=== PATIENT | female | born 1995 | race African-American/Black ===

== ENCOUNTER 2017-05-03 22:01 | Emergency (ER) | payer SELFPAY ==
[~2017-05-03] VITALS: Ht 160 cm; Wt 81.6 kg
[2017-05-03] MEDS ORDERED: KETOROLAC TROMETHAMINE 30 MG/ML INJ. IV ONE (23:00)
[2017-05-03] MEDS ORDERED: IV NORMAL SALINE 1000ML BAG 1,000 ML IV SCH (23:00)
[2017-05-03] MEDS ORDERED: fentaNYL PF VIAL 100 MCG/2 ML VIAL IV PRN (23:00)
[2017-05-03 23:06] LABS: BASO # 0.1 x10^3/uL (0.0-0.2); BASO % 1 % (0-3); EOS % 1 % (0-3); HEMATOCRIT 37.2 % (36.0-47.0); HEMOGLOBIN 12.3 g/dL (12.0-15.5); LYMPH # 2.6 x10^3/uL (1.0-4.8); LYMPH % 27 % (24-48); MEAN CORPUSCULAR HEMOGLOBIN 27 pg (25-35); MEAN CORPUSCULAR HGB CONC 33 g/dL (31-37); MEAN CORPUSCULAR VOLUME 83 fL (79-100); MONO % 10 % (0-9); NEUT % 62 % (31-73); PLATELET COUNT 441 x10^3/uL (140-400); RED BLOOD COUNT 4.51 x10^6/uL (3.50-5.40); RED CELL DISTRIBUTION WIDTH 16.2 % (11.5-14.5); WHITE BLOOD COUNT 9.5 x10^3/uL (4.0-11.0)
[2017-05-03 23:08] LABS: BILIRUBIN,URINE NEGATIVE (NEG); GLUCOSE,URINE NEGATIVE (NEG); NITRITE,URINE NEGATIVE (NEG); PROTEIN,URINE NEGATIVE (NEG-TRACE); UROBILINOGEN,URINE 0.2 mg/dL (0.2 mg/dL)
[2017-05-03 23:15] LABS: CALCIUM 9.5 mg/dL (8.5-10.1); CREATININE 0.8 mg/dL (0.6-1.0); GFR 111.8; POTASSIUM 3.5 mmol/L (3.5-5.1)
--- NOTE | 2017-05-03 23:16 | ED.ADGEN ---
Past Medical History Past Medical History: Asthma, GERD Past Surgical History: Tonsillectomy, Other Additional Past Surgical Histo: adenoid Alcohol Use: None Drug Use: None Adult General Chief Complaint Chief Complaint: ABDOMINAL PAIN HPI HPI Patient is a 21 year old woman, with a history of intermittent rectal pain, after "an enema when I was a kid", who presents to the emergency department with complaint of lower abdominal and rectal pain that began about an hour ago. She states she's had similar rectal pain previously, ever since receiving enemas a child, but has not previously needed to seek medical care she states that today he was extremely severe. Patient is tearful during my examination. She states that she is having pain that began in the "inside", of her rectal area, and is experiencing pain in the lower quadrant, which is been constant for the past hour, associated with nausea no vomiting. She states that she did have a bowel movement before the pain began, states she was not constipated, bowel was normal past issue, there was no bleeding. She denies any injuries or insertions into the rectum. Patient states she is not sexually active, denies any discharge, drainage, urinary or complaints. Denies any recent travel or surgery, any rashes, any other symptoms or complaints. She states that she took Tylenol home without relief. Review of Systems Review of Systems Constitutional: Denies fever or chills. [] Eyes: Denies change in visual acuity. [] HENT: Denies nasal congestion or sore throat. [] Respiratory: Denies cough or shortness of breath. [] Cardiovascular: Denies chest pain or edema. [] GI: Denies vomiting, bloody stools or diarrhea. [] Complaining of lower quadrant abdominal pain, and rectal pain. : Denies dysuria. [] Musculoskeletal: Denies back pain or joint pain. [] Integument: Denies rash. [] Neurologic: Denies headache, focal weakness or sensory changes. [] Endocrine: Denies polyuria or polydipsia. [] Lymphatic: Denies swollen glands. [] Psychiatric: Denies depression or anxiety. [] Current Medications Current Medications Current Medications Medications (Trade) Dose Ordered Sig/Zohreh Start Time Stop Time Status Last Admin Dose Admin Fentanyl Citrate (Fentanyl 2ml Vial) 50 mcg PRN Q15MIN PRN 05/03/17 23:00 05/04/17 05:37 DC 05/03/17 23:13 50 MCG Ketorolac Tromethamine (Toradol) 10 mg 1X ONCE 05/03/17 23:00 05/03/17 23:01 DC 05/03/17 23:00 10 MG Sodium Chloride 1,000 ml @ 1,000 mls/hr Q1H 05/03/17 23:00 05/03/17 23:59 DC 05/03/17 23:00 1,000 MLS/HR Allergies Allergies Allergies Coded Allergies Type Severity Reaction Last Updated Verified Penicillins Allergy Intermediate Rash 05/03/17 Yes erythromycin base Allergy Intermediate Rash 05/03/17 Yes shellfish derived Allergy Intermediate SWELLING 12/28/13 Yes Physical Exam Physical Exam Constitutional: Well developed, well nourished, no acute distress, non-toxic appearance. [] HENT: Normocephalic, atraumatic, bilateral external ears normal, oropharynx moist, no oral exudates, nose normal. [] Eyes: PERRLA, EOMI, conjunctiva normal, no discharge. [] Neck: Normal range of motion, no tenderness, supple, no stridor. [] Cardiovascular:Heart rate regular rhythm, no murmur , S1, S2, no rubs or gallops. [] Lungs & Thorax: Bilateral breath sounds clear to auscultation, no wheezing, rhonchi, rales. Chest crepitus or tenderness. [] Abdomen: Bowel sounds normal, soft, tenderness to palpation in the bilateral lower quadrants and pelvic region, no rebound, rigidity, no guarding, no masses , no pulsatile masses. [] Skin: Warm, dry, no erythema, no rash. [] Back: No tenderness, no CVA tenderness. [] Extremities: No tenderness, no cyanosis, no clubbing, ROM intact, no edema. [] Neurologic: Alert and oriented X 3, normal motor function, normal sensory function, no focal deficits noted. [] Psychologic: Affect normal, judgement normal, mood normal. [] Rectal examination: Patient is external examination is unremarkable, however upon attempted insertion of my finger, patient is yelling in pain, with extreme tension, no masses palpated, after second attempt, no evidence of injury, no foreign bodies or other maladies identified. Current Patient Data Vital Signs Vital Signs Date Time Temp Pulse Resp B/P (MAP) Pulse Ox O2 Delivery O2 Flow Rate FiO2 05/03/17 23:30 84 132/59 (83) 99 Room Air 05/03/17 23:13 18 05/03/17 22:36 98.3 98.3 Lab Values Laboratory Tests Test 05/03/17 21:48 05/03/17 22:50 POC Urine HCG, Qualitative Hcg negative (Negative) White Blood Count 9.5 x10^3/uL (4.0-11.0) Red Blood Count 4.51 x10^6/uL (3.50-5.40) Hemoglobin 12.3 g/dL (12.0-15.5) Hematocrit 37.2 % (36.0-47.0) Mean Corpuscular Volume 83 fL (79-100) Mean Corpuscular Hemoglobin 27 pg (25-35) Mean Corpuscular Hemoglobin Concent 33 g/dL (31-37) Red Cell Distribution Width 16.2 % (11.5-14.5) H Platelet Count 441 x10^3/uL (140-400) H Neutrophils (%) (Auto) 62 % (31-73) Lymphocytes (%) (Auto) 27 % (24-48) Monocytes (%) (Auto) 10 % (0-9) H Eosinophils (%) (Auto) 1 % (0-3) Basophils (%) (Auto) 1 % (0-3) Neutrophils # (Auto) 5.9 x10^3uL (1.8-7.7) Lymphocytes # (Auto) 2.6 x10^3/uL (1.0-4.8) Monocytes # (Auto) 0.9 x10^3/uL (0.0-1.1) Eosinophils # (Auto) 0.1 x10^3/uL (0.0-0.7) Basophils # (Auto) 0.1 x10^3/uL (0.0-0.2) Urine Collection Type Unknown Urine Color Yellow Urine Clarity Clear Urine pH 6.0 Urine Specific Aurora >=1.030 Urine Protein Negative mg/dL (NEG-TRACE) Urine Glucose (UA) Negative mg/dL (NEG) Urine Ketones (Stick) Trace mg/dL (NEG) Urine Blood Negative (NEG) Urine Nitrite Negative (NEG) Urine Bilirubin Negative (NEG) Urine Urobilinogen Dipstick 0.2 mg/dL (0.2 mg/dL) Urine Leukocyte Esterase Small (NEG) Urine RBC 0 /HPF (0-2) Urine WBC 5-10 /HPF (0-4) Urine Squamous Epithelial Cells Mod /LPF Urine Bacteria Moderate /HPF (0-FEW) Urine Mucus Mod /LPF Sodium Level 138 mmol/L (136-145) Potassium Level 3.5 mmol/L (3.5-5.1) Chloride Level 101 mmol/L (98-107) Carbon Dioxide Level 28 mmol/L (21-32) Anion Gap 9 (6-14) Blood Urea Nitrogen 11 mg/dL (7-20) Creatinine 0.8 mg/dL (0.6-1.0) Estimated GFR (Cockcroft-Gault) 111.8 BUN/Creatinine Ratio 14 (6-20) Glucose Level 93 mg/dL (70-99) Calcium Level 9.5 mg/dL (8.5-10.1) Total Bilirubin 0.4 mg/dL (0.2-1.0) Aspartate Amino Transferase (AST) 14 U/L (15-37) L Alanine Aminotransferase (ALT) 15 U/L (14-59) Alkaline Phosphatase 61 U/L (46-116) Total Protein 8.7 g/dL (6.4-8.2) H Albumin 3.9 g/dL (3.4-5.0) Albumin/Globulin Ratio 0.8 (1.0-1.7) L Laboratory Tests 05/03/17 22:50 Laboratory Tests 05/03/17 22:50 EKG EKG Not indicated [] Radiology/Procedures Radiology/Procedures [][facility] [address] [place] [address] IMAGING REPORT Signed PATIENT: ANNABELLE HUNG ACCOUNT: [id number] : 1995 LOCATION: ER AGE: 21 SEX: F EXAM STATUS: REG ER ORD. PHYSICIAN: AMOL GRACIA DO REASON: abd/rectal pain PROCEDURE: CT ABDOMEN PELVIS WO CONTRAST Abdominal and Pelvis CT, Without Contrast: History: Right flank pain. Comparison: December 28, 2013. Procedure: Axial images are obtained of the abdomen and pelvis, without IV or oral contrast. CT Abdomen without Contrast: Findings: Evaluation of solid organs is limited without contrast. Evaluation of stomach and bowel is limited without oral contrast. Liver: Normal. Spleen: Normal. Pancreas: Normal. Adrenal Glands: Normal. Kidneys: Normal. There is no free air or free fluid. There is no lymphadenopathy. Impression: Please see CT Pelvis without Contrast. End Impression. CT Pelvis without Contrast: Findings: The urinary bladder appears normal. There is no free fluid. There is no lymphadenopathy. There is no pericolonic inflammation identified. There is a small tubular structure medial to the cecum which could be a normal appendix. Impression: No evidence of urolithiasis or obstructive uropathy. No acute findings. End impression PQRS Compliance Statement: One or more of the following individualized dose reduction techniques were utilized for this examination: 1. Automated exposure control 2. Adjustment of the mA and/or kV according to patient size 3. Use of iterative reconstruction technique Electronically signed by: Dao Gonzalez III, MD (05/03/2017 11:44 PM) [facility] DICTATED and SIGNED BY: DAO GONZALEZ III, MD DATE: 05/03/17 2704 CC: AMOL GRACIA DO; NO PCP ~ Course & Med Decision Making Course & Med Decision Making Pertinent Labs and Imaging studies reviewed. (See chart for details) After discussion at bedside, will obtain CT of the abdomen and pelvis, laboratory studies or further elucidate patient's symptoms. Patient's laboratory studies not reveal any acutely concerning findings, CT was unremarkable. On reevaluation patient is feeling better. I discussed with the patient that no concerning cause for her discomfort were identified, we discussed follow-up with a primary care provider, and concerning symptoms that prompt return to the ED. Patient is feeling much better at this time. She states she is ready discharged home. Patient discharged home in stable condition with prescription for Bentyl, clear and detailed return instructions and precautions as stated above. Dragon Disclaimer Dragon Disclaimer This electronic medical record was generated, in whole or in part, using a voice recognition dictation system. Departure Impression: Primary Impression: Abdominal pain Disposition: 01 HOME, SELF-CARE Condition: IMPROVED Scripts Dicyclomine Hcl (BENTYL) 10 Mg Capsule 10 MG PO QID Y for ABDOMINAL PAIN, #12 TAB Prov: AMOL GRACIA DO 05/04/17 AMOL GRACIA DO May 03, 2017 23:16
[2017-05-03 23:21] LABS: ALBUMIN 3.9 g/dL (3.4-5.0); ALBUMIN/GLOBULIN RATIO 0.8 (1.0-1.7); TOTAL BILIRUBIN 0.4 mg/dL (0.2-1.0); TOTAL PROTEIN 8.7 g/dL (6.4-8.2)
[2017-05-03 23:24] LABS: BACTERIA,URINE MODERATE /HPF (0-FEW); RBC,URINE 0 /HPF (0-2); SQUAMOUS EPITHELIAL CELL,UR MOD /LPF
[2017-05-03 23:30] VITALS: BP 132/59
--- NOTE | 2017-05-03 23:47 | RAD ---
Abdominal and Pelvis CT, Without Contrast: History: Right flank pain. Comparison: December 28, 2013. Procedure: Axial images are obtained of the abdomen and pelvis, without IV or oral contrast. CT Abdomen without Contrast: Findings: Evaluation of solid organs is limited without contrast. Evaluation of stomach and bowel is limited without oral contrast. Liver: Normal. Spleen: Normal. Pancreas: Normal. Adrenal Glands: Normal. Kidneys: Normal. There is no free air or free fluid. There is no lymphadenopathy. Impression: Please see CT Pelvis without Contrast. End Impression. CT Pelvis without Contrast: Findings: The urinary bladder appears normal. There is no free fluid. There is no lymphadenopathy. There is no pericolonic inflammation identified. There is a small tubular structure medial to the cecum which could be a normal appendix. Impression: No evidence of urolithiasis or obstructive uropathy. No acute findings. End impression PQRS Compliance Statement: One or more of the following individualized dose reduction techniques were utilized for this examination: 1. Automated exposure control 2. Adjustment of the mA and/or kV according to patient size 3. Use of iterative reconstruction technique Electronically signed by: Cecil Lackey III, MD (05/03/2017 11:44 PM) [facility]
[2017-05-04] MEDS ORDERED: DICY10CA53 PO (00:39)
== END 2017-05-04 00:25 | disposition home or self-care (01) ==
LOC: ER 22:01
DX: R10.9 Unspecified abdominal pain (principal); K62.89 Other specified diseases of anus and rectum; J45.909 Unspecified asthma, uncomplicated; K21.9 Gastro-esophageal reflux disease without esophagitis; Z88.0 Allergy status to penicillin; Z88.1 Allergy status to other antibiotic agents; Z91.013 Allergy to seafood
CPT/HCPCS: 36415; 74176; 80053; 81001; 81025; 85027; 87086; 96361; 96374; 96375; 99285; J1885; J3010; J7030

== ENCOUNTER 2017-11-12 15:27 | Emergency (ER) | payer SELFPAY ==
[2017-11-12] MEDS: ACETAMINOPHEN 500 MG TABLET PO (16:48)
[2017-11-12 17:10] LABS: INFLUENZA A PATIENT NEGATIVE (NEGATIVE); INFLUENZA B PATIENT NEGATIVE (NEGATIVE); OBC FLU VALID
[2017-11-13 08:15] LABS: NEGATIVE OBC STREP NEG; POSITIVE OBC STREP POS
== END 2017-11-12 17:37 | disposition home or self-care (01) ==
LOC: ER 15:27
DX: J04.0 Acute laryngitis (principal); J45.909 Unspecified asthma, uncomplicated; K21.9 Gastro-esophageal reflux disease without esophagitis; Z88.0 Allergy status to penicillin; Z88.1 Allergy status to other antibiotic agents; Z91.013 Allergy to seafood
CPT/HCPCS: 71045; 87070; 87804; 87804-59; 87880; 93005; 99285-25

== ENCOUNTER 2019-04-21 01:23 | Emergency (ER) | payer OTHER ==
[~2019-04-21] VITALS: Ht 157.5 cm; Wt 90.7 kg
[~2019-04-21 01:23] MED LIST: DICY10CA53 PO
[2019-04-21 01:38] VITALS: BP 134/82
[2019-04-21] MEDS ORDERED: BACITRACIN TOPICAL OINT 14GM TUBE. TP ONE (02:30)
[2019-04-21] MEDS ORDERED: DIPHTH,PERTUSS(ACELL),TET TOX 0.5 ML DISP.SYRIN. VAX IM ONE (02:30)
[2019-04-21] MEDS ORDERED: ACETAMINOPHEN 500 MG TABLET PO ONE (03:00)
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
== END 2019-04-21 02:16 | disposition home or self-care (01) ==
LOC: ER 01:23
DX: S50.12XA Contusion of left forearm, initial encounter (principal); R51 Headache; K21.9 Gastro-esophageal reflux disease without esophagitis; J45.909 Unspecified asthma, uncomplicated; W50.3XXA Accidental bite by another person, initial encounter; Y93.89 Activity, other specified; Y92.69 Other specified industrial and construction area as the place of occurrence of the external cause; Y99.0 Civilian activity done for income or pay
CPT/HCPCS: 90471; 90715; 99283